=== PATIENT | female | born 1990 | race Caucasian/White ===

== ENCOUNTER 2022-04-14 08:00 | Outpatient (CLI) | payer SELFPAY | END 2022-04-14 23:59 | disposition home or self-care (01) | LOC: LAB.N 08:00 | PROVIDERS: ATTEND Registered Nurse | DX: R30.0 Dysuria (principal) | CPT/HCPCS: 87086 ==

== ENCOUNTER 2023-04-07 17:06 | Emergency (ER) | payer OTHER ==
[2023-04-07] MEDS ORDERED: KETOROLAC 15 MG/ML VIAL IVP STA ×2 (17:38→20:20)
[2023-04-07] MEDS ORDERED: METOCLOPRAMIDE 10 MG/2 ML VIAL IVP STA (17:38)
[2023-04-07] MEDS ORDERED: SODIUM CHLORIDE 0.9% 1,000 ML IV STA (17:38)
[2023-04-07] MEDS ORDERED: diphenhydrAMINE INJ 50 MG/ML VIAL IVP STA (17:38)
--- NOTE | 2023-04-07 17:40 | ED Physician Documentation ---
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 Usually when she gets a migraine she throws up and then starts to feel better. She developed a headache today which was more severe and global than her usual migraines and she threw up and did not get better which is atypical for her. She is light sensitive more than sound sensitive with it. She denies fevers or chills or neck stiffness. She was fine earlier in the day. PD PAST MEDICAL HISTORY - Present Medications Home Medications: Ambulatory Orders Medication Instructions Recorded Confirmed Viloxazine HCl [Qelbree] 100 mg PO DAILY 04/07/23 04/07/23 - Allergies Allergies/Adverse Reactions: Allergies Allergy/AdvReac Type Severity Reaction Status Date / Time fentanyl Allergy Emesis Verified 04/07/23 17:24 PD ED PE NORMAL - Vitals Vital signs reviewed: Yes - General General: Alert and oriented X 3, Other (Appears uncomfortable and light- sensitive holding a vomit bag.) - HEENT HEENT: PERRL, EOMI - Neck Neck: Supple, no meningeal sign, No bony TTP - Neuro Neuro: Alert and oriented X 3, 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, No motor deficit, No sensory deficit, Normal speech Eye Opening: Spontaneous Motor: Obeys Commands Verbal: Oriented GCS Score: 15 - Psych Psych: Normal mood, Normal affect Results - Vitals Vitals: Vital Signs - 24 hr 04/07/23 04/07/23 04/07/23 17:20 19:09 20:17 Temperature 37.1 C Heart Rate 75 67 69 Respiratory 15 18 18 Rate Blood Pressure 147/108 H 140/96 H 129/97 H O2 Saturation 100 100 99 04/07/23 21:03 Temperature Heart Rate 79 Respiratory 18 Rate Blood Pressure 144/106 H O2 Saturation 98 Oxygen O2 Source Room air - Rads (name of study) CT of the head is unremarkable Relevant Findings:: Final report received, EMP independent interpretation of test PD Medical Decision Making - ED course ED course: 32-year-old with history of migraines presents with a worse than usual headache with no improvement after vomiting. She was unable to keep down any migraine medicine at home. Given that her headache is worse than usual and somewhat atypical we did discuss CT scanning after initial evaluation, after discussion we decided together that we would trial a migraine cocktail and reconsider CT imaging if not improved. An IV was placed and she was administered Reglan, Benadryl, Toradol IV. After the above medications she had some relief but it was certainly incomplete having gone from an 8 to a 6 or a 7 on the pain scale. Head CT was ordered and small dose of Haldol for migraine was ordered as well. This resulted modest and fleeting relief but had better relief after IV dexam ethasone, repeat Toradol, and subcutaneous Imitrex. Subsequently head CT was negative and she remained without meningismus or fever and requesting discharge. Departure - Departure Disposition: Home, Self Care Clinical Impression: Migraine Qualifiers: Migraine type: unspecified Status migrainosus presence: with status migrainosus Intractability: intractable Qualified Code(s): G43.911 - Migraine, unspecified, intractable, with status migrainosus Condition: Good Record reviewed to determine appropriate education?: Yes Instructions: ED Headache Migraine Comments: You were seen today for what is apparently a migraine headache, CAT scan was negative and he had no symptoms of infection. Return for new or worsening symptoms. Follow-up with your primary care physician, next available appointment. Forms: PCP List, Activity restrictions Discharge Date/Time: 04/07/23 21:03
[2023-04-07] MEDS ORDERED: HALOPERIDOL 5 MG/ML VIAL IVP STA (18:23)
[2023-04-07] MEDS ORDERED: SUMAtriptan 6 MG/0.5 ML VIAL SUBQ STA (20:20)
[2023-04-07] MEDS ORDERED: DEXAMETHASONE 10 MG/ML VIAL IVP STA (20:20)
--- NOTE | 2023-04-07 20:31 | CT Report ---
PROCEDURE: HEAD WO INDICATIONS: whol TECHNIQUE: Noncontrast 4.5 mm thick angled axial sections acquired from the foramen magnum to the vertex. For r adiation dose reduction, the following was used: automated exposure control, adjustment of mA and/or kV according to patient size. COMPARISON: None. FINDINGS: Image quality: Excellent. CSF spaces: Basal cisterns are patent. No extra-axial fluid collections. Ventricles are normal in size and shape. Brain: No midline shift. No intracranial masses or hemorrhage. Aviles-white matter interface is norm al. Skull and face: Calvarium and visualized facial bones are intact, without suspicious lesions. Sinuses: Visualized sinuses and mastoids are clear. IMPRESSION: No acute intracranial pathology. Reviewed by: Fercho Adair MD on 04/07/2023 8:30 PM PDT Approved by: Fercho Adair MD on 04/07/2023 8:30 PM PDT Station ID: [id number]
[2023-04-07 21:05] VITALS: BP 144/106; O2SAT 98
== END 2023-04-07 21:03 | disposition home or self-care (01) ==
LOC: ED 17:06
DX: G43.911 Migraine, unspecified, intractable, with status migrainosus (principal)
CPT/HCPCS: 70450; 96372; 96374; 96375; 96376; 99284; J1200; J2765